=== PATIENT | male | born 1995 | race Caucasian/White ===

== ENCOUNTER 2024-12-02 01:17 | Emergency (ER) | payer OTHER, MEDICAID ==
[~2024-12-02] VITALS: Ht 180.3 cm; Wt 90.0 kg
[2024-12-02 01:20] VITALS: TEMP 36.6; O2SAT 98
[2024-12-02 01:33] VITALS: BP 128/75; PULSE 89; RESP 16; O2SAT 99
== END 2024-12-02 01:33 ==
LOC: ER 01:17
DX: Z02.89 Encounter for other administrative examinations (principal); R03.0 Elevated blood-pressure reading, without diagnosis of hypertension
CPT/HCPCS: 99283